=== PATIENT | male | born 1985 | race Caucasian/White ===

== ENCOUNTER 2021-06-25 12:39 | Emergency (ER) | payer OTHER, MEDICAID, SELFPAY ==
[2021-06-25 12:40] VITALS: BP 151/86; PULSE 71; RESP 18; TEMP 35.7; O2SAT 98; BMI 31.1
--- NOTE | 2021-06-25 13:09 | CT_ITS ---
STUDY: CT CERVICAL SPINE WITHOUT CONTRAST REASON FOR EXAM: Male, 35 years old. Pain -- hx of ACDF RADIATION DOSAGE (If Supplied By Facility): CTDIvol = ( 27.95 ) mGy, DLP = ( 602.01 ) mGycm TECHNIQUE: High resolution transaxial imaging was performed without contrast material. Sagittal and coronal images were reconstructed. Individualized dose optimization techniques were used for this CT. COMPARISON: None FINDINGS: Normal craniovertebral junction. Normal anterior atlantoaxial articulation. Normal odontoid process. There is straightening of the normal cervical lordosis. Normal vertebral bodies and posterior osseous elements. 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 Mild left neural foraminal stenosis. C3-4: Facet joint osteoarthritis and hypertrophy worse on the right side. Moderate degree of right neural foraminal stenosis. C4-5: Normal endplates. Normal disc height and morphology. Normal central canal and intervertebral neuroforamina. C5-6: The patient is status post anterior fusion with screw and plate fixation device and prosthetic disc placement. There is evidence of spondylosis worse in the right anterior aspect of the C5 vertebrae. There is a marked degree upright no foraminal stenosis. C6-7: The patient is status post anterior fusion with screw and plate fixation device. There is a moderate degree of right neural foraminal stenosis and anterior spondylosis. The right interpedicular screw is fractured. C7-T1: Mild degree of disc space narrowing and spondylosis. Normal visualized soft tissue structures. CT/Spine Cervical without Contras IMPRESSION: Multilevel degenerative changes, as described above. Status post anterior fusion at the C5-C6 and C6-7 levels. The right interpedicular screw at the C7 vertebral level is fractured. Electronically Signed: Willem Kowalski MD at 14:09 EST ,
[2021-06-25] MEDS: oxyCODONE 5 MG Tablet PO (13:14)
[2021-06-25 13:55] VITALS: BP 129/83; PULSE 74; RESP 14; O2SAT 96
--- NOTE | 2021-06-25 14:09 | EDS_ITS ---
HPI History of Present Illness Chief Complaint: Back Informant: patient Narrative Narrative: Patient presents increasing lower neck pain for the past 6 weeks. Denies trauma. Reports had a 4 level ACDF 3 years ago at [facility], he cannot recall his surgeon's name. He states worsening symptoms over the last 4 weeks worse with movement. Denies fevers or headaches. Denies loss of bowel or bladder control denies any difficulty walking. Denies any IV drug use. He states symptoms worse with work activities. Reports previously intermittent vomiting mild specks of blood. There is no abdominal pain. No melena. No current symptoms. No current PCP. He is [id number] he states he feels mildly weaker in the left arm compared to the right. There is no paresthesias. No radicular symptoms. Prior similar symptoms: Yes PFSH PFSH Home Medications oxycodone-acetaminophen [Percocet] 1 tab PO Q6H PRN 3 Days #12 tab 06/25/21 [Rx Last Taken Unknown] Allergy/AdvReac Type Severity Reaction Status Date / Time No Known Allergies Allergy Verified 06/25/21 12:41 Social History Smoking Status: Unknown if ever smoked ROS ROS ED Constitutional Constitutional ED: Denies chills, fever(s) or sweats Eyes Eyes: Denies change in vision ENT ENT ED: Denies dysphagia or sore throat Cardiovascular Cardiovascular: Denies chest pain, leg edema, palpitations or racing heartbeat Respiratory/Chest Respiratory/Chest: Denies cough, dyspnea or dyspnea on exertion Gastrointestinal Gastrointestinal: Denies abdominal pain, diarrhea, nausea or vomiting Genitourinary Genitourinary ED: Denies dysuria, hematuria or urinary frequency Musculoskeletal Musculoskeletal: Reports neck pain; Denies back pain or extremity pain Integumentary Denies rash or wounds Neurologic Neurologic: Denies headache(s), paresthesias or weakness EXAM Physical Exam Const Vital Signs: 06/25/21 12:40 06/25/21 13:55 06/25/21 15:19 Temperature 96.2 F L Temperature Source Temporal Pulse Rate 71 74 61 Respiratory Rate 18 14 14 Blood Pressure 151/86 H 129/83 H 136/83 H Blood Pressure Mean 107 98 100 Pulse Ox 98 96 97 Oxygen Delivery Method Room Air Room Air Room Air Positive well nourished and well developed General Appearance ED: well developed and NAD HEENT Reports moist mucous membranes normocephalic and atraumatic Eyes PERRL, EOMs intact bilaterally and conjunctivae normal General Eye ED: Yes normal appearance of both eyes Neck no lymphadenopathy and supple Neck Narrative: Small horizontal scar base of the left lower neck. Slight midline tenderness at C6-C7 with no step-offs. No erythema. General: tenderness Chest Wall Chest: Negative for tenderness Resp normal respiratory effort and normal air movement Effort and Inspection: symmetric chest movement; Negative for respiratory distress Cardio regular rate, regular rhythm and no murmurs Peripheral Pulses: pulses 2+ throughout GI normal to inspection, nondistended, normoactive bowel sounds and non-tender Palpation: Negative for guarding or rebound tenderness present Back/Spine no CVA tenderness and no thoracic nor lumbar tenderness Extremity normal to inspection General Extremety ED: Negative for edema or tenderness General Extremity: Negative for edema Neuro oriented x3 and no sensory deficits noted Neuro Narrative: Upper extremity strength 5 out of 5 to abduction and of the shoulder extension flexion of the elbows along with bottle machine operator strength. No sensory deficits. Neurovascular intact distally. Sensorium / Orientation: awake and alert Skin no rashes or lesions noted and no wounds MDM MDM MDM Narrative Medical decision making narrative: Patient with no weakness or radicular symptoms. Dilated his pain and surgical history CT scan was obtained. He had two-level fusion at C5-C6, C6-C7. However did note right interpedicular screw fracture at C7. He was initially treated with Percocet. I discussed the findings with the patient. Image studies were shown to the patient. Evaluation of Clinisync note he had surgery in [address]Bradley Mccloud up in [place]. Impression was pulled up with contact information. CT was placed on a disc for the patient to take to his surgeon for outpatient evaluation. This is not an emergent condition that warrants any transfers or surgery immediately. Prescription for Percocet written for symptom control. Patient is being discharged under pandemic conditions under declared global, national and state disaster activation, with limited medical resources. Patient and community understands this. Results discussed in layman's terms to the patient satisfaction. All questions answered in layman's terms. Patient understands importance of follow-up care as directed. Patient has been instructed to return to the ED immediately if new symptoms, problems, or questions occur. We mutually agree with the plan of disposition. The patient understand that they may call or return with any questions or concerns at any time.. Radiography Diagnostic Testing: Clinical Impression(s) from Imaging Studies Cervical Spine CT 06/25/21 13:09 IMPRESSION: Multilevel degenerative changes, as described above. Status post anterior fusion at the C5-C6 and C6-7 levels. The right interpedicular screw at the C7 vertebral level is fractured. Electronically Signed: Willem Kowalski MD at 14:09 EST , Discharge Plan Triage Chief Complaint: Back ED Provider: Dejon Doherty Dx/Rx/DC Orders Clinical Impression: Neck pain without injury, Failed hardware Instructions: ED Neck Pain Prescriptions: New oxycodone-acetaminophen [Percocet] 5-325 mg tablet 1 tab PO Q6H PRN (Reason: pain) 3 Days Qty: 12 RF: 0 Primary Care Provider: Care Physician,No Primary Referrals: Care Physician,No Primary [Primary Care Provider] - Activity Restrictions/Additional Instructions: Joe Mccloud MD Located in: [facility] Address: [address] [place] [address] [place] [address] CT scan notes a broken screw from your fusion. CT scan was placed on a disc for you to take to your surgeon. Call Dr. Mccloud who did your surgery for outpatient evaluation. Fluids Disposition Disposition: Home, Self Care Discharge Date/Time: 06/25/21 15:51
[2021-06-25 15:19] VITALS: BP 136/83; PULSE 61; RESP 14; O2SAT 97
== END 2021-06-25 23:59 | disposition home or self-care (01) ==
PROVIDERS: Emergency Provider Emergency Medicine; Visit Provider Emergency Medicine
DX: T84.296A Other mechanical complication of internal fixation device of vertebrae, initial encounter (principal); M54.2 Cervicalgia
CPT/HCPCS: 72125; 99282

== ENCOUNTER 2024-04-11 20:05 | Emergency (ER) | payer OTHER, SELFPAY ==
[2024-04-11 20:06] VITALS: BP 147/91; PULSE 92; RESP 18; TEMP 37.8; O2SAT 97; BMI 30.9
--- NOTE | 2024-04-11 20:24 | RAD_ITS ---
EXAM: XR CHEST, 2 VIEWS CLINICAL INDICATION: Cough and fever TECHNIQUE: Frontal and lateral views of the chest. COMPARISON: Cervical spine radiographs on the same date. FINDINGS: LUNGS AND PLEURAL SPACES: Bibasilar pulmonary opacities are likely atelectasis or perhaps pneumonia most evident in the lower lobes. No pneumothorax. No effusion. HEART: No significant abnormality. Cardiac silhouette not enlarged. MEDIASTINUM: Central airways and mediastinal contour are unremarkable. BONES/JOINTS: Postoperative changes of the cervical and thoracic spine are again partially identified with lateral mass and pedicle screws extending to the level of approximately T5. Degenerative changes elsewhere in the thoracic spine. No acute fracture. SOFT TISSUES: No significant abnormality. RAD/Chest PA and Lateral IMPRESSION: 1. Postoperative changes of the cervical and thoracic spine are again partially identified with lateral mass and pedicle screws extending to the level of approximately T5. 2. Bibasilar pulmonary opacities are likely atelectasis or perhaps pneumonia most evident in the lower lobes. Electronically Signed: Erwin Steinberg DO at 21:41 EST ,
--- NOTE | 2024-04-11 20:25 | RAD_ITS ---
EXAM: XR CERVICAL SPINE, 2 OR 3 VIEWS CLINICAL INDICATION: Injury/Pain TECHNIQUE: Frontal and lateral views of the cervical spine. COMPARISON: CT cervical spine, 06/25/2021 FINDINGS: VERTEBRAE: Straightening of expected cervical lordosis. Facet arthrosis at C2-C3. C5-C7 ACDF changes similar to the prior examination. There is a new C3-C4 and C4-C5 ACDF and posterior fusion spanning C3 to the upper thoracic spine. Preserved vertebral body height. No acute fracture. No spondylolisthesis. Normal craniocervical junction and C1-C2 articulations. DISC SPACES: Normal disc space at C2-C3. Discectomy throughout the remainder of the spine. SOFT TISSUES: No significant abnormality. No prevertebral soft tissue widening. LUNG APICES: Clear. RAD/Cerv Spine 2 or 3 Views IMPRESSION: C5-C7 ACDF changes similar to the prior examination. There is a new C3-C4 and C4-C5 ACDF and posterior fusion spanning C3 to the upper thoracic spine. No acute osseous abnormalities. Degenerative changes. Electronically Signed: Erwin Steinberg DO at 21:40 EST ,
--- NOTE | 2024-04-11 20:35 | EX.ED.DYSGE1 ---
HPI History of Present Illness Chief Complaint: Cold Sx Detail of Chief Complaint: Fever, chills, myalgias arthralgias and nonproductive cough Informant: patient and spouse/S.O. Onset/Context/Timing Onset: Days (Illness started 5 days ago) Context: Sudden Onset Timing: Continuous and Waxes and wanes Quality: Tmax 103.9. Location: Respiratory and generalized/systemic Current Severity: Mild Maximum Severity: Moderate Worsened by: Nothing Relieved by: Nothing Associated Symptoms Associated Symptoms: neck pain after fall this morning Narrative Narrative: Patient is a 38-year-old male. He presents with persistent fever for the past 5 days with a Tmax 103.9. He complains of bitemporal head pain, not nasal congestion, throat pain and nonproductive cough. Patient also remains of myalgias arthralgias. He denies any ill contacts. He states he has no appetite. He does endorse thirst dry mouth and lightheadedness. He does endorse decreased urine output. He denies rash. Denies joint swelling. Prior similar symptoms: No Recent Illness/Hospitalization: No PFSH PFSH Home Medications ?Medication ?Instructions ?Recorded ?Last Taken ?Type NK 04/11/24 Unknown History Allergy/AdvReac Type Severity Reaction Status Date / Time No Known Allergies Allergy Verified 04/11/24 20:06 Surgical History History of spinal fusion Social History (Updated 04/11/24 @ 20:[address] Tae Espinosa MD) household members: spouse Smoking Status: Never smoker ROS ROS ED Constitutional Constitutional ED: Reports chills, fever(s) and sweats; Denies subjective or weight loss Eyes Eyes: Denies blurry vision or change in vision ENT ENT ED: Denies ear pain or rhinorrhea Cardiovascular Cardiovascular: Denies chest pain, orthopnea, palpitations or paroxysmal nocturnal dyspnea Respiratory/Chest Respiratory/Chest: Reports cough and dyspnea; Denies dyspnea on exertion, orthopnea, paroxysmal nocturnal dyspnea or sputum Gastrointestinal Gastrointestinal: Reports nausea, vomiting and other Details: Patient vomits after coughing hard. ; Denies abdominal pain, constipation, diarrhea or melena Genitourinary Genitourinary ED: Denies dysuria, hematuria or urinary frequency Musculoskeletal Musculoskeletal: Reports arthralgias, myalgias, neck pain and other Details: Neck pain after fall down 4 steps landing on his buttocks. Patient had significant surgery to his neck. ; Denies back pain Integumentary Reports rash Neurologic Neurologic: Reports headache(s) and weakness; Denies paresthesias Endocrine Endocrinology: Reports cold intolerance and heat intolerance Hematologic/Lymphatic Hematologic/Lymphatic: Reports systems reviewed and no addt'l complaints, except as documented EXAM Physical Exam Const Vital Signs: 04/11/24 20:06 04/11/24 20:14 04/11/24 20:15 Temperature 100.1 F H Temperature Source Oral Pulse Rate 92 Respiratory Rate 18 Respiratory Effort Normal Non-Labored Normal Non-Labored Respiratory Pattern Normal Blood Pressure 147/91 H Blood Pressure Mean 109 Pulse Ox 97 Oxygen Delivery Method Room Air Room Air 04/11/24 21:28 Temperature 103.2 F H Temperature Source Oral Pulse Rate 85 Respiratory Rate 20 H Respiratory Effort Respiratory Pattern Blood Pressure 138/76 H Blood Pressure Mean 96 Pulse Ox 98 Oxygen Delivery Method Room Air Positive well nourished and well developed Constitutional Narrative: Patient appears ill but not toxic. His temperature is 100.1. Blood pressure slightly elevated. Not hypoxic. General Appearance ED: well developed; Negative for pallor HEENT Reports dry mucous membranes HEENT Narrative: Ears normal. Nares patent. Posterior pharynx normal. Mouth ED: Yes dry mucous membranes Mouth: dry mucous membranes Eyes PERRL and EOMs intact bilaterally General Eye ED: Negative for pale conjunctiva or scleral icterus Neck no lymphadenopathy, supple and no JVD Chest Wall inspection of chest normal Resp normal respiratory effort and clear to auscultation bilaterally Cardio regular rate, regular rhythm, S1 normal heart sound, S2 normal heart sound and no murmurs GI normal to inspection, nondistended, normoactive bowel sounds, non-tender and non-distended; Negative for hepatosplenomegaly Palpation: soft Back/Spine no CVA tenderness Cervical Spine: cervical spine tenderness Extremity normal to inspection General Extremety ED: Negative for edema General Extremity: Negative for edema Neuro oriented x3 and CN's II-XII intact bilaterally Sensorium / Orientation: alert Skin no rashes or lesions noted, no wounds and skin turgor normal General Skin Exam: Negative for jaundice or pallor MDM MDM MDM Narrative Medical decision making narrative: Patient with systemic symptoms. This may represent viral versus bacterial. Will obtain chest x-ray to assess for pneumonia. Rapid antigen for COVID, RSV and influenza, because of decreased p.o. intake and urine output will obtain BMP to assess renal function electrolytes. CBC to assess white count and H&H. He was treated with anti-inflammatory for his fever and myalgias and arthralgias. Nurse informing that he becomes nauseous with anti-inflammatories. Verbal order for Zofran ODT was given. Because of his neck pain after fall and prior surgeries x 3 will obtain C-spine x-rays. Suspicion is low. Suspect this is strain. History & Record Review Additional record(s) reviewed:: No prior records Lab Data Attestation: I reviewed the patient's lab results. Lab results narrative: CBC is unremarkable. Competence of metabolic panel reveals mild hyponatremia, 133. Creatinine is elevated 1.42. There is no prior records for review. AST and ALT are slightly elevated 49 and 75. Labs: Laboratory Results - last 24 hr 04/11/24 20:44 WBC 5.0 RBC 5.18 Hgb 14.7 Hct 43.7 MCV 84.4 MCH 28.4 MCHC 33.6 RDW Std Deviation 38.3 RDW Coeff of Joel 12.4 Plt Count 170 MPV 9.6 Immature Gran % (Auto) 0.200 Neut % (Auto) 75.2 H Lymph % (Auto) 15.8 L [place] % (Auto) 8.0 Eos % (Auto) 0.4 Baso % (Auto) 0.4 Absolute Neuts (auto) 3.8 Absolute Lymphs (auto) 0.79 L Nucleated RBC % 0 Sodium 133 L Potassium 3.7 Chloride 99 Carbon Dioxide 27.0 Anion Gap 6 BUN 14 Creatinine 1.42 H Estim Creat Clear Calc 76.31 Est GFR (MDRD) Af Amer 71 Est GFR (MDRD) Non-Af 59 L BUN/Creatinine Ratio 9.9 L Glucose 110 H Calcium 8.8 Total Bilirubin 0.60 AST 49 H ALT 75 H Alkaline Phosphatase 82 Total Protein 8.2 Albumin 3.4 Globulin 4.8 H Albumin/Globulin Ratio 0.7 L Radiography Chest X-Ray - ED: 2 View (2 view chest x-ray reveals rods and screws due to prior cervical/thoracic fusion. Cardiac silhouette size normal. Lung parenchyma is unremarkable. Hilum is unremarkable. Osseous structures reveal prior surgery. Inspiratory volume is limited. There is no obvious effusion, infiltrate noted.) and Read by ED Physician (Three-view x-ray of cervical spine reveals prior surgical hardware. There is no acute process i.e. fracture, subluxation dislocation etc. Both films were independent reviewed interpreted by me at 2114.) Diagnostic Testing: Clinical Impression(s) from Imaging Studies Chest X-Ray 04/11/24 20:24 IMPRESSION: 1. Postoperative changes of the cervical and thoracic spine are again partially identified with lateral mass and pedicle screws extending to the level of approximately T5. 2. Bibasilar pulmonary opacities are likely atelectasis or perhaps pneumonia most evident in the lower lobes. Electronically Signed: Erwin Oakley VickjayantDO ranjan at 21:41 EST , Cervical Spine X-Ray 04/11/24 20:25 IMPRESSION: C5-C7 ACDF changes similar to the prior examination. There is a new C3-C4 and C4-C5 ACDF and posterior fusion spanning C3 to the upper thoracic spine. No acute osseous abnormalities. Degenerative changes. Electronically Signed: Erwin RobinBritney Steinberg DO at 21:40 EST , Treatment and Re-Evaluation :: Port score is 40. Curb 65 score is 0. Radiology report was read. In my opinion this is atelectasis and poor inspiratory volume. There were no abnormal oscillatory findings i.e. rales, wheezing, egophony or increased vocal fremitus. Discharge Plan Triage Chief Complaint: Cold Sx ED Provider: Tae Espinosa Dx/Rx/DC Orders Clinical Impression: Systemic viral illness, Neck pain, Fever, Elevated serum creatinine, Elevated liver transaminase level Instructions: ED Viral Syndrome (Adult) Prescriptions: No Action NK Primary Care Provider: Care Physician,No Primary Referrals: Pia Mosqueda DO [Med Staff - Active Staff] - 3-5 Days Care Physician,No Primary [Primary Care Provider] - Activity Restrictions/Additional Instructions: 1. Need to increase your fluid intake 2. Contact Dr. Mosqueda' office for blood work in 4 to 5 days. Your creatinine was elevated 3. If you develop shortness of breath, have colored sputum or of any concerns do not hesitate to return 4. Do not take ibuprofen, Aleve or any anti-inflammatory agent. Take Tylenol for your fever. Print Language: Zambian Disposition Disposition: Home, Self Care
[2024-04-11] MEDS: Ondansetron ODT 4 MG Tablet PO (20:51)
[2024-04-11] MEDS: 0.9% Normal Saline (1000mL) 1,000 ML 1000 ML IV (20:51)
[2024-04-11] MEDS: Naproxen 500 MG Tablet PO (20:51)
[2024-04-11 21:05] LABS: Absolute Lymphocyte Count 0.79 X10^3/uL (0.83-4.51); Absolute Neutrophil Count 3.8 X10^3/uL (2.0-7.7); Basophil# 0.02 X10^3/uL; Basophil% 0.4 % (0-1); Eosinophil# 0.02 X10^3/uL; Eosinophils% 0.4 % (0-5); Hematocrit 43.7 % (40-54); Hemoglobin 14.7 g/dL (13.0-16.5); Lymphocyte # 0.79 X10^3/ul (0.83-4.51); Lymphocyte % 15.8 % (19-41); Mean Corp Hgb Conc 33.6 g/dL (32-36); Mean Corpuscular Hgb 28.4 pg (27.0-32.0); Mean Corpuscular Volume 84.4 fL (80-94); Mean Platelet Vol. 9.6 fl (6.2-12.0); NRBC Flagged by Analyzer 0 % (0-5); Neutrophil # 3.77 X10^3/uL (2.7-7.7); Neutrophil % 75.2 % (47-70); Platelet Count 170 K/mm3 (150-450); RBC Distribution Width CV 12.4 % (11.6-14.6); RBC Distribution Width SD 38.3 fl (35.1-43.9); Red Blood Count 5.18 M/mm3 (4.6-6.2)
[2024-04-11 21:26] LABS: ALB/GLOB Ratio 0.7 RATIO (0.9-2.4); AST(SGOT) 49 U/L (15-37); Alanine Aminotransfer ALT/SGPT 75 U/L (16-61); Albumin, Serum 3.4 g/dL (3.2-5.0); Alkaline Phosphatase 82 U/L (45-117); Anion Gap 6 (5-15); BUN 14 mg/dL (7-18); BUN/Creat Ratio 9.9 RATIO (10-20); Calcium,Total 8.8 mg/dL (8.5-10.1); Chloride 99 mmol/L (98-107); Creatinine, Serum 1.42 mg/dL (0.70-1.30); EST Glomerular Filtration Rate 59 mL/min (>60); Est Glom Filt Rate - Afr Amer 71 mL/min (>60); Estimated Creatinine Clearance 76.31 ml/min; Globulin 4.8 g/dL (2.2-4.2); Glucose 110 mg/dL (74-106); Potassium 3.7 mmol/L (3.5-5.1); Protein, Total 8.2 g/dL (6.4-8.2); Sodium Level 133 mmol/L (136-145)
[2024-04-11 21:28] VITALS: BP 138/76; PULSE 85; RESP 20; TEMP 39.6; O2SAT 98
== END 2024-04-11 22:20 | disposition home or self-care (01) ==
PROVIDERS: Emergency Provider Emergency Medicine; Visit Provider Emergency Medicine
DX: R50.9 Fever, unspecified (principal); K82.8 Other specified diseases of gallbladder; R79.89 Other specified abnormal findings of blood chemistry; R74.01 Elevation of levels of liver transaminase levels; M54.2 Cervicalgia; B34.9 Viral infection, unspecified
CPT/HCPCS: 71046; 72040; 80053; 85025; 87631; 96360; 99285; A4216